=== PATIENT | female | born 1970 | race Caucasian/White ===

== ENCOUNTER 2017-12-27 15:55 | Emergency (ER) | payer OTHER ==
[~2017-12-27] VITALS: Ht 172.7 cm; Wt 54.0 kg
[2017-12-27 16:00] VITALS: BP 138/108
--- NOTE | 2017-12-27 16:08 | NUR ---
Patient ambulated to bed 1. RN evaluating patient at bedside.
--- NOTE | 2017-12-27 16:10 | NUR ---
47F BIB SON WITH C/O 10 INTERMITTENT RUQ ABD PAIN RADIATING TO LUQ X 3 MONTHS, PROGRESSIVELY GETTING WORSE. ULTRASOUND DONE THROUGH PCP 11/19/17, CONFIRMED GALL BLADDER SLUDGE. WAS INSTRUCTED TO COME TO ER IF PAIN WORSENS. PATIENT DENIES ANY N/V/D OR FEVER. PATIENT REPORTS OF LOOSE STOOL. PT IS AOX4 TO PERSON, TIME, SITUATION, AND PLACE. RR ARE EVEN AND UNLABORED. PATIENT CHANGED INTO GOWN AND TO CARDIAC, BP, PULSE OX, AND PULSE MONITORING. NAD. PT IS TACHYCARDIAC, PT DENIES ANY CP, SOB, OR DIZZINESS. RH=464's. PT WITH STEADY GAIT. PT POSITIONED TO COMFORT, BED DOWN. SAFETY PRECAUTIONS IN PLACE. WILL CONTINUE TO MONITOR.
--- NOTE | 2017-12-27 17:38 | NUR ---
LAB BY BEDSIDE
[2017-12-27 17:49] LABS: APPEARANCE,URINE HAZY (CLEAR); BILIRUBIN,URINE 2+ (NEGATIVE); BLOOD, URINE TRACE-I (NEGATIVE); COLOR,URINE OTHER (YELLOW); LEUKOCYTE ESTERASE ,URINE NEGATIVE (NEGATIVE); NITRITE, URINE POSITIVE (NEGATIVE); PH,URINE 6.5 (5.0-9.0); UGLUCOSE TRACE (NEGATIVE)
[2017-12-27 17:50] LABS: BASOPHILS # (AUTO) 0.1 K/uL (0.00-0.22); BASOPHILS % (AUTO) 1.1 % (0.0-2.0); EOSINOPHILS # (AUTO) 0.2 K/uL (0-0.4); EOSINOPHILS % (AUTO) 4.7 % (0.0-4.0); HEMATOCRIT 36.6 % (36-48); HEMOGLOBIN 12.4 g/dL (12.0-16.0); LYMPHOCYTES # (AUTO) 1.5 K/uL (2.5-16.5); LYMPHOCYTES % (AUTO) 32.7 % (20.5-51.1); MEAN CORPUSCULAR HEMOGLOBIN 34 pg (27-31); MEAN CORPUSCULAR HGB CONC 34 g/dL (33-37); MEAN CORPUSCULAR VOLUME 99.1 fL (80-94); MONOCYTES # (AUTO) 0.5 K/uL (0.8-1.0); MONOCYTES % (AUTO) 11.7 % (1.7-9.3); NEUTROPHILS # (AUTO) 2.3 K/uL (1.8-7.7); NEUTROPHILS % (AUTO) 49.8 % (42.2-75.2); PLATELET COUNT (AUTO) 194 K/uL (140-450); RED BLOOD CELL COUNT(AUTO) 3.69 MIL/uL (4.20-5.40); RED CELL DISTRIBUTION WIDTH 13.2 % (11.6-13.7); WHITE BLOOD COUNT (AUTO) 4.6 K/uL (4.8-10.8)
[2017-12-27 18:03] LABS: ALBUMIN 2.3 g/dL (3.4-5.0); ANION GAP 12.5 (8-16); CARBON DIOXIDE 29.5 mmol/L (21-32); CREATININE 0.4 mg/dL (0.6-1.3); TOTAL BILIRUBIN 1.6 mg/dL (0.0-1.0)
[2017-12-27 18:03] LABS: RBC,URINE 0-5 (RARE) /HPF (0-5); WBC,URINE NONE SEEN /HPF (0-5)
--- NOTE | 2017-12-27 18:09 | NUR ---
ULTRASOUNDS BY BEDSIDE
--- NOTE | 2017-12-27 19:18 | NUR ---
Pt report given to Margie IZQUIERDO. Transfer of care at this time.
[2017-12-27 19:45] VITALS: BP 127/99
--- NOTE | 2017-12-27 19:47 | NUR ---
Patient discharged with v/s stable. Written and verbal after care instructions given and explained. Patient alert, oriented and verbalized understanding of instructions. Ambulatory with steady gait. All questions addressed prior to discharge. ID band removed. Patient advised to follow up with PMD. Rx of TRAMADOL 50MG given. Patient educated on indication of medication including possible reaction and side effects. Opportunity to ask questions provided and answered.
== END 2017-12-27 19:47 | disposition home or self-care (01) ==
LOC: MED 15:55
DX: K83.9 Disease of biliary tract, unspecified (principal); E87.6 Hypokalemia; K80.50 Calculus of bile duct without cholangitis or cholecystitis without obstruction; K76.9 Liver disease, unspecified; I10 Essential (primary) hypertension; Z88.0 Allergy status to penicillin
CPT/HCPCS: 36415; 76705; 80053; 81001; 81025; 83690; 85025; 99285; Q0092